=== PATIENT | male | born 1970 | race Caucasian/White ===

== ENCOUNTER → 2018-01-16 | Outpatient (CLI) | payer OTHER ==
--- NOTE | 2018-01-16 14:47 | PCVCIMAG ---
APPROVED REPORT Study performed: 01/16/2018 13:59:50 EXAM: Comprehensive 2D, Doppler, and color-flow Echocardiogram Patient Location: Echo lab Status: routine BSA: 2.29 HR: 70 bpmBP: 130/76 mmHg Rhythm: NSR Other Information Study Quality: Adequate Risk Factors: Cardiac Risk Factors: Hyperlipidemia Indications Aortic stenosis 2D Dimensions LVEF(%): 62.63 (>50%) IVSd: 9.17 (7-11mm)LVOT Diam: 21.42 (18-24mm) LVDd: 52.96 mm PWd: 9.29 (7-11mm)Ascending Ao: 33.53 (22-36mm) LVDs: 34.89 (25-40mm) Left Atrium: 33.85 (27-40mm) Aortic Root: 30.89 mm LV Single Plane 4CH: 47.65 % LV Single Plane 2CH: 50.44 %Dawson's LVEF: 49.04 % Biplane EF: 50.5 % Volumes Left Atrial Volume (Systole) Single Plane 4CH: 30.33 mLSingle Plane 2CH: 56.21 mL LA ESV Index: 21.00 mL/m2 Aortic Valve AoV Peak Oniel.: 2.87 m/s AO Peak Gr.: 32.92 mmHgLVOT Max P.06 mmHg AO Mean Gr.: 18.51 mmHgLVOT Mean P.64 mmHg AO V2 Mean: 2.07 m/sLVOT Max V: 0.87 m/s AO V2 VTI: 64.39 cm DEEDEE (VTI): 1.15 [id number] V1 VTI: 20.61 cm DEEDEE Vmax: 1.10 cm2 AI Vmax: 4.45 m/s AI [place]: 2.72 m/s2 AI PHT: 476.32 ms Mitral Valve E/A Ratio: 1.9 MV Decel. Time: 231.00 ms MV E Max Oniel.: 0.82 m/s MV A Oniel.: 0.44 m/s MV PHT: 66.99 ms IVRT: 89.97 ms Pulmonary Vein P Vein S: 0.30 m/sP Vein A: 0.33 m/s P Vein D: 0.65 m/sP Vein A Dur.: 96.9 msec P Vein S/D Ratio: 0.46 Tricuspid Valve TR Peak Oniel.: 2.54 m/s TR Peak Gr.: 25.87 mmHg Left Ventricle The left ventricle is normal size. There is normal LV segmental wall motion. There is normal left ventricular wall thickness. Left ventricular systolic function is normal. The left ventricular ejection fraction is within the normal range. LVEF is 50-55%. The left ventricular diastolic function is normal. Right Ventricle The right ventricle is normal size. The right ventricular systolic function is normal. Atria The left atrium size is normal. Possible patent foramen ovale. The right atrium size is normal. Aortic Valve The aortic valve is moderately calcified. Mild aortic regurgitation. There is mild valvular aortic stenosis. Calculated aortic valve area is 1.1 cm2 with maximum pressure gradient of 33 mmHg and mean pressure gradient of 19 mmHg. Mitral Valve Mild mitral annular calcification Mild mitral regurgitation. No evidence of mitral valve stenosis. Tricuspid Valve The tricuspid valve is normal in structure. Mild tricuspid regurgitation with PAP of 33 mmHg. Pulmonic Valve The pulmonary valve is normal in structure. There is no pulmonic valvular regurgitation. Great Vessels The aortic root is normal in size. IVC is normal in size and collapses with >50% inspiration Pericardium There is no pericardial effusion. There is no pleural effusion. <Conclusion> Left ventricular systolic function is normal. There is normal LV segmental wall motion. LVEF is 50-55%. Normal diastolic function Possible patent foramen ovale. The aortic valve is moderately calcified, mild valvular aortic stenosis, mild insufficiency. Calculated aortic valve area is 1.1 cm2 with maximum pressure gradient of 33 mmHg and mean pressure gradient of 19 mmHg. Mild mitral annular calcification. Mild mitral regurgitation. Mild tricuspid regurgitation with pulmonary artery pressure of 33 mmHg. There is no pericardial effusion.
== END | disposition home or self-care (01) ==
LOC: PCVCIMAG 14:25
PROVIDERS: ATTEND Internal Medicine
DX: I08.3 Combined rheumatic disorders of mitral, aortic and tricuspid valves (principal); C81.90 Hodgkin lymphoma, unspecified, unspecified site; E78.5 Hyperlipidemia, unspecified
CPT/HCPCS: 93306

== ENCOUNTER → 2019-03-19 | Outpatient (CLI) | payer OTHER ==
--- NOTE | 2019-03-19 08:49 | PCVCIMAG ---
APPROVED REPORT Indications Bruit Doppler Spectral Velocity Analysis PSV / EDVPSV / EDV ECA (R) 73 / 10 cm/sECA (L) 60 / 17 cm/s dICA (R) 52 / 21 cm/sdICA (L) 49 / 20 cm/s Jacqueline (R) 54 / 21 cm/smICA (L) 47 / 21 cm/s pICA (R) 37 / 12 cm/spICA (L) 33 / 10 cm/s Bulb (R) 44 / 13 cm/sBulb (L) 47 / 11 cm/s dCCA (R) 68 / 16 cm/sdCCA (L) 58 / 17 cm/s mCCA (R) 70 / 14 cm/smCCA (L) 65 / 18 cm/s Vert (R) 20 / 6 cm/sVert (L) 33 / 15 cm/s ICA/CCA 0.77ICA/CCA 0.75 Basic Measurements Blood Pressure: Pulses: Right Left RightLeft Brachial(Sitting) 136/07faEq639/80mmHgTemporal Real Time B-Mode Imaging Vert. (R)AntegradeVert. (L)Antegrade Findings RIGHT CAROTID: The carotid bulb has no significant plaque. The proximal internal carotid artery shows no significant stenosis. The common carotid artery shows no significant stenosis. The external carotid artery shows no significant stenosis. LEFT CAROTID: The carotid bulb has no significant plaque. The proximal internal carotid artery shows no significant stenosis. The common carotid artery shows no significant stenosis. The external carotid artery shows no significant stenosis. Conclusion No significant stenosis of the right internal carotid artery with no significant plaque. No significant stenosis of the left internal carotid artery with no significant plaque.
== END | disposition home or self-care (01) ==
LOC: PCVCIMAG 08:31
PROVIDERS: ATTEND Internal Medicine
DX: R09.89 Other specified symptoms and signs involving the circulatory and respiratory systems (principal)
CPT/HCPCS: 93880